=== PATIENT | female | born 1990 | race Caucasian/White ===

== ENCOUNTER 2017-08-20 19:14 | Emergency (ER) | payer BC ==
[2017-08-20] MEDS ORDERED: KETOROLAC TROMETHAMINE 60 MG/2 ML VIAL IM ONE (19:39)
[2017-08-20] MEDS ORDERED: ORPHENADRINE CITRATE 60 MG/2ML IM ONE (19:39)
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
[2017-08-20 22:00] VITALS: BP 128/75
== END 2017-08-20 20:50 | disposition home or self-care (01) ==
LOC: ED 19:14
DX: S16.1XXA Strain of muscle, fascia and tendon at neck level, initial encounter (principal); V89.2XXA Person injured in unspecified motor-vehicle accident, traffic, initial encounter; Y93.9 Activity, unspecified; Y92.9 Unspecified place or not applicable; Y99.9 Unspecified external cause status
CPT/HCPCS: 72125; J1885; J2360; L0120; 96372; 99283

== ENCOUNTER 2018-08-11 17:58 | Emergency (ER) | payer SELFPAY ==
--- NOTE | 2018-08-11 18:20 | ED Physician Documentation ---
Upper Respiratory Symptoms - HPI Stated Complaint: sinus pressure Chief Complaint: Cough/ Upper Respiratory Additional Information: Patient presents with a 3 week history of cough, nasal congestion and sore throat. She states the past 2 days she began to run a fever (101.5). She admits to sinus pressure and headache. Onset: days ago (21) Duration: constant Context: denies: recent foreign travel Severity: moderate Associated Symptoms: fever, runny nose, sinus pain, sinus drainage, sore throat. denies: shortness of breath Worsened by Deep Breath: No Further Comments: no - ROS CONST/EYES: denies: weakness CVS/RESP: denies: chest pain, shortness of breath LYMPH: denies: rash GI/: denies: vomiting, nausea NEURO/PSYCH: denies: dizziness MS/SKIN: denies: muscle aches - PAST HX Lung Disease: none PE Risk Factors: none Allergies/Adverse Reactions: Allergies Allergy/AdvReac Type Severity Reaction Status Date / Time amoxicillin trihydrate Allergy Verified 08/20/17 19:48 [From Amoxil] Home Medications: Ambulatory Orders Medication Instructions Recorded Levothyroxine Sodium [Synthroid] 125 mcg PO 0700 08/04/15 Levofloxacin [Levaquin] 500 mg PO DAILY #10 tablet 08/11/18 Metformin HCl ER [Glucophage XR] 1 tab PO BID 08/11/18 - SOCIAL HX Smoking History: non-smoker Alcohol Use: none Drug Use: none - FAMILY HX Family History: none - VITAL SIGNS Vital Signs: Vital Signs Temp Pulse Resp BP Pulse Ox 128/75 08/20/17 20:50 - REVIEWED ASSESSMENTS Nursing Assessment Reviewed: Yes Vitals Reviewed: Yes Upper Respiratory Symptoms - EXAM General Appearance: no acute distress, alert EENT: pain over sinuses, maxillary, rhinorrhea, pharyngeal erythema. No: tonsillar exudate Neck: supple Respiratory: no resp. distress Abdomen: non-tender, nml bowel sounds CVS: reg rate & rhythm, heart sounds normal Skin: color nml, no rash, warm,dry Extremities: non-tender, no edema Neuro/Psych: oriented x3 Discharge Clincal Impression: Acute sinusitis Qualifiers: Sinusitis location: maxillary Recurrence: non-recurrent Qualified Code(s): J01.00 - Acute maxillary sinusitis, unspecified Prescriptions: Levofloxacin [Levaquin] 500 mg PO DAILY #10 tablet Referrals: Beach,Shahrzad Catrachita, COLOR TELEVISION CONSOLE MONITOR [Primary Care Provider] - 2 Days Additional Instructions: 1. Tylenol and/or Ibuprofen as needed for pain 2. Sinus irrigation as needed for comfort 3. cool mist humidifier with sleep 4. Follow up with PCP within 1 week 5. Return to ER with new or worsening symptoms. Condition: Stable Decision to Admit: NO Date of Decison to Admit: 08/11/18 Decision Time: 18:24
[2018-08-11 18:23] VITALS: BP 142/97
== END 2018-08-11 18:30 ==
LOC: ED 17:58
DX: J01.00 Acute maxillary sinusitis, unspecified (principal)
CPT/HCPCS: 99282

== ENCOUNTER 2019-02-19 18:18 | Emergency (ER) | payer SELFPAY ==
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
[2019-02-19] MEDS ORDERED: KETOROLAC TROMETHAMINE 30 MG/1ML VIAL IV ONE (19:21)
[2019-02-19] MEDS ORDERED: 0.9 % SODIUM CHLORIDE 1,000 ML IV ONE (19:21)
[2019-02-19 19:36] LABS: BASOPHILS % 0.5 % (0.0-1.5); NEUTROPHILS # 6.5 # k/uL (1.4-7.7)
[2019-02-19 19:54] LABS: eGFR (Non-African) > 60
[2019-02-19] MEDS: fentaNYL CITRATE/PF 100 MCG/2 ML INJ. IV ONE ×3 (20:40→21:40)
--- NOTE | 2019-02-19 20:48 | Diagnostic Imaging Report ---
AUDELIA ROYAL [facility] [address] [facility] [address] [place], [place]. [address] Report Submission Date: Feb 19, 2019 7:08:39 PM CDT Patient Study Name: LAYTON NUNEZ Date: Feb 19, 2019 6:40:31 PM CDT Modality Type: DX Gender: F Description: ABD SERIES PA CHEST : 89 Institution: [facility] Physician: AUDELIA ROYAL Abdominal series with chest History: Epigastric pain and nausea Findings: The lungs are clear. There is no pleural effusion. Heart size and pulmonary vascularity are normal. Upright and supine abdominal radiographs reveal a normal bowel gas pattern without obstruction, free air, or significant constipation. No abnormal calcifications are observed. Impression: Normal. Electronically signed on Feb 19, 2019 7:08:39 PM CDT by: Conor TREVINO
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
[2019-02-19 21:40] VITALS: BP 119/70
[2019-02-19 21:54] LABS: APPEARANCE,URINE CLEAR (CLEAR); COLOR,URINE YELLOW (YELLOW); OCCULT BLOOD,URINE NEGATIVE (NEGATIVE); UROBILINOGEN URINE 0.2 Eu (0.2-1.0)
== END 2019-02-19 21:40 | disposition home or self-care (01) ==
LOC: ED 18:18
DX: R10.13 Epigastric pain (principal)
CPT/HCPCS: 74022; 74177; 80053; 81002; 81025; 85025; 96360; 96372; 99284; J1885; J3010; J7030; S1016